=== PATIENT | male | born 1965 | race Caucasian/White ===

== ENCOUNTER 2016-12-02 13:29 | Outpatient (CLI) | payer BC | END 2016-12-02 13:30 | disposition home or self-care (01) | DX: M25.572 Pain in left ankle and joints of left foot (principal) ==

== ENCOUNTER 2021-09-07 17:04 | Outpatient (CLI) | payer BC ==
--- NOTE | 2021-09-07 22:08 | XRAY Report ---
PROCEDURE: Lumbar Spine 2 View INDICATIONS: LUMBAGO WITH SCIATICA, LEFT TECHNIQUE: 3 views of the lumbar spine were acquired. COMPARISON: None. FINDINGS: Bones: 5 [id number] vertebrae are present. There is normal bony alignment. No vertebral body compression fractures. No suspicious bony lesions. Degenerative disc disease with disc space narrow ing and endplate sclerosis with anterior and posterior osteophytes and facet arthrosis at L5-S1. The remaining disc spaces are maintained. Soft tissues: Overlying bowel gas pattern is normal. No suspicious soft tissue calcifications. IMPRESSION: Degenerative disc disease at L5-S1. Reviewed by: Prashant Musa on 09/07/2021 10:07 PM [facility] Approved by: Prashant Musa on 09/07/2021 10:07 PM [facility] Station ID: [id number]
== END 2021-09-07 17:05 | disposition home or self-care (01) ==
LOC: DI.S 17:04
PROVIDERS: ATTEND Nurse Practitioner Family
DX: M51.37 Other intervertebral disc degeneration, lumbosacral region (principal); M47.817 Spondylosis without myelopathy or radiculopathy, lumbosacral region